=== PATIENT | female | born 1990 | race Caucasian/White ===

== ENCOUNTER → 2021-10-17 09:41 | Outpatient (CLI) | payer OTHER, SELFPAY ==
[2021-10-17 10:53] LABS: Add Manual Diff / Slide Review NO; Basophils Absolute Auto 0 /uL (0-100); Basophils Percent Auto 0.4 % (0-2); Eosinophils Absolute Auto 100 /uL (0-450); Eosinophils Percent Auto 1.6 % (2-4); Hematocrit 40.9 % (36-46); Hemoglobin 13.9 g/dL (12.0-16.0); Lymphocytes Absolute Auto 2000 /uL (1100-4500); Lymphocytes Percent Auto 26.6 % (25-40); Mean Corpuscular HGB Conc 33.9 % (30-36); Mean Corpuscular Volume 85.6 fL (80-100); Monocytes Absolute Auto 500 /uL (0-900); Monocytes Percent Auto 7.1 % (3-14); Neutrophils Absolute Auto 4700 /uL (1500-7000); Neutrophils Percent Auto 64.3 % (50-75); Platelet Count 302 X10^3/uL (150-400); Red Blood Cell Count 4.77 X10^6/uL (4.0-5.2); Red Cell Distribution Width 13.6 % (11.6-14.8); White Blood Cell Count 7.4 X10^3/uL (4.5-11.0)
[2021-10-17 12:00] LABS: HCG Quantitative /Beta subunit 12061 mIU/mL
== END ==
PROVIDERS: PCP Student in an Organized Health Care Education/Training Program; Referring Provider Obstetrics & Gynecology; Visit Provider Obstetrics & Gynecology
DX: O20.0 Threatened abortion (principal)
CPT/HCPCS: 36415; 84702; 85025; 86850; 86900; 86901

== ENCOUNTER → 2021-10-19 08:40 | Outpatient (CLI) | payer OTHER, SELFPAY ==
[2021-10-19 10:47] LABS: HCG Quantitative /Beta subunit 10355 mIU/mL
== END ==
PROVIDERS: PCP Student in an Organized Health Care Education/Training Program; Referring Provider Obstetrics & Gynecology; Visit Provider Obstetrics & Gynecology
DX: O20.0 Threatened abortion (principal)
CPT/HCPCS: 36415; 84702

== ENCOUNTER → 2021-10-23 10:32 | Outpatient (CLI) | payer OTHER, SELFPAY | PROVIDERS: PCP Student in an Organized Health Care Education/Training Program; Referring Provider Obstetrics & Gynecology; Visit Provider Obstetrics & Gynecology | DX: O03.4 Incomplete spontaneous abortion without complication (principal) | CPT/HCPCS: 36415; 84702 ==

== ENCOUNTER → 2022-10-12 11:03 | Outpatient (CLI) | payer OTHER, SELFPAY ==
--- NOTE | 2022-10-12 11:04 | DI.US.S_ITS ---
PROCEDURE: US OB <= 14 WEEKS FETUS INDICATIONS: DATING AND VIABILITY OUTSIDE/PRIOR DATING DATA: Last menstrual period (LMP): 07/27/2022 LMP-based estimated date of delivery (YISSEL): 05/03/2023 First dating scan (date and location): 10/12/2022 Estimated date of delivery (YISSEL) from first dating scan: 05/04/2023 TECHNIQUE: Real-time scanning was performed of the fetus and maternal pelvic organs, with image documentation. COMPARISON: None. 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 Single live intrauterine gestation is seen within the left horn of the bicornuate uterus with fetus and yolk sac seen. Argenta-rump length measures 4.9 cm. Estimated gestational age is 10 weeks, 6 days.. Estimated gestational age based on last menstrual period is 11 weeks 0 day. Heart rate: 160 beats per minute. Cervix is closed, cervical canal measures 3.3 cm in length. Maternal organs: Right ovary is visualized and is within normal limits. Left ovary is not seen. Complex hypoechoic structure is noted within right horn of bicornuate uterus measures 3.9 x 2.1 x 3.8 cm in size and show no internal vascularity. IMPRESSION: 1. Single live intrauterine gestation within left horn of the bicornuate uterus as described above. Estimated gestational age based on current study is 10 weeks, 6 days. heart rate is 160 beats per minute. 2. Nonvascular hypoechoic area within right horn of bicornuate uterus as above and may represent subchorionic hemorrhage. Sonographic follow-up is recommended. Right ovary is visualized and is within normal limits. Left ovary is not well seen. No adnexal mass is noted. We strive to produce accurate, complete, and clear reports of imaging services. To assist us in improving patient care, this report was composed using standard report templates and voice recognition software. Therefore, it may contain abnormal punctuation, insertions and/or omissions. Occasional wrong-word or sound-alike substitutions may occur. Though we review the report and make efforts to correct it, we do recommend that the report be read carefully in proper context to recognize any text inaccuracies. Dictated by: Ezio Guy M.D. on 10/12/2022 at 12:22 Approved by: Ezio Guy M.D. on 10/12/2022 at 12:25
== END ==
PROVIDERS: PCP Student in an Organized Health Care Education/Training Program; Referring Provider Obstetrics & Gynecology; Visit Provider Obstetrics & Gynecology
DX: Z36.87 Encounter for antenatal screening for uncertain dates (principal); O34.01 Maternal care for unspecified congenital malformation of uterus, first trimester; Q51.3 Bicornate uterus; Z3A.10 10 weeks gestation of pregnancy
CPT/HCPCS: 76801; 76817

== ENCOUNTER → 2022-10-22 10:06 | Outpatient (CLI) | payer OTHER, SELFPAY ==
[2022-10-22 22:56] LABS: Urine Chlamydia NOT DETECTED; Urine N gonorrhoeae NOT DETECTED
== END ==
PROVIDERS: PCP Student in an Organized Health Care Education/Training Program; Visit Provider Obstetrics & Gynecology
DX: Z34.81 Encounter for supervision of other normal pregnancy, first trimester (principal); Z3A.12 12 weeks gestation of pregnancy
CPT/HCPCS: 87491; 87591

== ENCOUNTER → 2022-10-22 10:26 | Outpatient (CLI) | payer OTHER, SELFPAY ==
[2022-10-22 11:30] LABS: Specimen Label y
[2022-10-22 12:12] LABS: Add Manual Diff / Slide Review NO; Basophils Absolute Auto 0 /uL (0-100); Basophils Percent Auto 0.3 % (0-2); Eosinophils Absolute Auto 0 /uL (0-450); Eosinophils Percent Auto 0.6 % (2-4); Hematocrit 39.6 % (36-46); Hemoglobin 13.4 g/dL (12.0-16.0); Lymphocytes Absolute Auto 1700 /uL (1100-4500); Lymphocytes Percent Auto 23.1 % (25-40); Mean Corpuscular HGB Conc 33.9 % (30-36); Mean Corpuscular Hemoglobin 29.7 PG (26-34); Mean Corpuscular Volume 87.6 fL (80-100); Monocytes Absolute Auto 400 /uL (0-900); Neutrophils Absolute Auto 5100 /uL (1500-7000); Platelet Count 237 X10^3/uL (150-400); Red Blood Cell Count 4.52 X10^6/uL (4.0-5.2); Red Cell Distribution Width 13.6 % (11.6-14.8); White Blood Cell Count 7.3 X10^3/uL (4.5-11.0)
[2022-10-22 16:29] LABS: Hepatitis B Surface Antigen NEGATIVE s/c (NEGATIVE); Rubella Antibody IgG 8.5 IU/mL (>15)
[2022-10-22 16:45] LABS: HIV 1 & 2 Ab/Ag 4th Gen Combo NEGATIVE (NEGATIVE); Hep C Virus Ab w/Reflex Quant NEGATIVE s/c (NEGATIVE)
[2022-10-23 09:13] LABS: Varicella IgG Antibody 207 index (Immune >165)
[2022-10-24 02:42] LABS: RPR Screen Non Reactive (Non Reactive)
== END ==
PROVIDERS: PCP Student in an Organized Health Care Education/Training Program; Referring Provider Obstetrics & Gynecology; Visit Provider Obstetrics & Gynecology
DX: Z34.81 Encounter for supervision of other normal pregnancy, first trimester (principal); Z3A.12 12 weeks gestation of pregnancy
CPT/HCPCS: 36415; 80055; 86787; 86803; 86850; 86900; 86901; 87086; 87389; 87491; 87591

== ENCOUNTER → 2022-11-22 14:38 | Outpatient (CLI) | payer OTHER, SELFPAY ==
[2022-11-24 21:04] LABS: AFP Value 69.2 ng/mL (.); Gest Age on Col Date 16.9 weeks (.); Insulin Dep Diabetes No (.); OSBR Risk 1IN 1630 (.); Results Report (.); Test Results *Screen Negative* (.)
== END ==
PROVIDERS: PCP Student in an Organized Health Care Education/Training Program; Referring Provider Obstetrics & Gynecology; Visit Provider Obstetrics & Gynecology
DX: Z34.82 Encounter for supervision of other normal pregnancy, second trimester (principal); Z3A.16 16 weeks gestation of pregnancy
CPT/HCPCS: 36415; 82105

== ENCOUNTER → 2022-12-18 10:18 | Outpatient (CLI) | payer OTHER, SELFPAY ==
--- NOTE | 2022-12-18 10:19 | DI.US.S_ITS ---
PROCEDURE: US OB >= 14 WEEKS FETUS INDICATIONS: ANATOMY OUTSIDE/PRIOR DATING DATA: Last menstrual period (LMP): 07/27/2022. LMP-based estimated date of delivery (YISSEL): 05/03/2023. First dating scan (date and location): 09/22/2022. Estimated date of delivery (YISSEL) from first dating scan: 05/04/2023. TECHNIQUE: Real-time scanning was performed of the fetus, with image documentation and biometric measurements. Endovaginal scanning: Not performed COMPARISON: None. FINDINGS: General: A single living intrauterine gestation is present. Presentation: Breech. Placenta: Placental position is posterior , without previa. Amniotic fluid index: 13.2 cm, normal range is 5-24 cm. Single deepest vertical pocket is 4.2 cm. heart rate: 150 beats per minute. Maternal cervical canal: 3.8 cm long. Normal lower limit is 2.5 cm. biometrics: Biparietal diameter: 4.7 cm, 20 weeks 2 days Head circumference: 18.1 cm, 20 weeks 4 days Abdominal circumference: 15.3 cm, 20 weeks 4 days Femur length: 3.4 cm, 20 weeks 5 days Clinically estimated gestational age: 20 weeks 4 days Composite gestational age from present scan: 20 weeks 4 days Estimated weight and percentile: 363 g, 45th percentile Anatomic survey: Neuro: Ventricles are non-dilated at less than 10 mm. Cisterna magna is normal at 3-11 mm. Cerebellum is normal in size and morphology. Nuchal skin fold: Normal at less than 6 mm between 14-21 weeks gestational age. Face: Nose and lips, facial profile are normal. Spine: No evidence for spina bifida. Heart: 4-chambered heart is present, with normal ventricular outflow tracts. Diaphragm: Diaphragm is intact. Stomach: Left-sided stomach is present. Kidneys: No hydronephrosis. Normal is less than 5 mm in 2nd trimester, less than 7 mm in 3rd trimester. Cord: 3-vessel cord has orthotopic insertion. Bladder: Normal in size. Extremities: All 4 extremities identified. IMPRESSION: Single living intrauterine at 20 weeks 4 days, YISSEL of 05/03/2023. Normal anatomy survey. Forty-fifth percentile estimated weight percentage. We strive to produce accurate, complete, and clear reports of imaging services. To assist us in improving patient care, this report was composed using standard report templates and voice recognition software. Therefore, it may contain abnormal punctuation, insertions and/or omissions. Occasional wrong-word or sound-alike substitutions may occur. Though we review the report and make efforts to correct it, we do recommend that the report be read carefully in proper context to recognize any text inaccuracies. Dictated by: Tera Espino M.D. on 12/18/2022 at 14:26 Approved by: Tera Espino M.D. on 12/18/2022 at 14:29
== END ==
PROVIDERS: PCP Student in an Organized Health Care Education/Training Program; Referring Provider Obstetrics & Gynecology; Visit Provider Obstetrics & Gynecology
DX: Z34.82 Encounter for supervision of other normal pregnancy, second trimester (principal); Z3A.20 20 weeks gestation of pregnancy
CPT/HCPCS: 76811

== ENCOUNTER → 2023-01-23 13:15 | Outpatient (CLI) | payer OTHER, SELFPAY ==
[2023-01-24 12:14] LABS: Candida species Positive (Negative); Gardnerella vaginalis Negative (Negative); Trichomoas vaginalis Negative (Negative)
== END ==
PROVIDERS: PCP Student in an Organized Health Care Education/Training Program; Visit Provider Obstetrics & Gynecology
DX: N89.8 Other specified noninflammatory disorders of vagina (principal)
CPT/HCPCS: 87480; 87510; 87660

== ENCOUNTER → 2023-01-29 09:20 | Outpatient (CLI) | payer OTHER, SELFPAY ==
[2023-01-29 11:08] LABS: Hematocrit 35.3 % (36-46); Hemoglobin 11.9 g/dL (12.0-16.0)
[2023-01-29 11:26] LABS: GTT (PREG) 1 Hour PP 50gm Dose 88 mg/dL (76-139)
== END ==
PROVIDERS: PCP Student in an Organized Health Care Education/Training Program; Referring Provider Obstetrics & Gynecology; Visit Provider Obstetrics & Gynecology
DX: Z34.82 Encounter for supervision of other normal pregnancy, second trimester (principal); Z3A.26 26 weeks gestation of pregnancy
CPT/HCPCS: 36415; 82950; 85014; 85018

== ENCOUNTER 2023-02-25 13:35 | Outpatient (CLI) | payer OTHER, SELFPAY ==
[2023-02-25 14:23] LABS: Appearance Urine UA CLEAR; Bilirubin Urine UA NEGATIVE (NEGATIVE); Color Urine UA YELLOW; Glucose Urine UA NEGATIVE (Negative); Ketones Urine UA NEGATIVE (NEGATIVE); Leukocyte Esterase Urine UA 1+ (NEGATIVE); Nitrite Urine UA NEGATIVE (Negative); Occult Blood Urine UA TRACE-LYSED (Negative); Protein Urine UA NEGATIVE (Negative); Specific Gravity Urine UA <=1.005 (1.000-1.035); Urobilinogen Urine UA 0.2 E.U./dL (0.2)
[2023-02-25 15:06] LABS: Bacteria Urine Many (>30); Culture Indicated Urine Specimen Cultured; RBC Urine None Seen (0-5/HPF); Squamous Epithelial Cell Urine 10-30 /HPF (0-5/HPF); WBC Urine 5-10/HPF (0-5/HPF)
--- NOTE | 2023-02-25 18:00 | P.TNLD_ITS ---
Visit Information Visit Information Date of evaluation: 02/25/23 Primary OB Provider: Herminio Mayberry On-call OB Provider: Amara Tomlin Reason for Evaluation: Yes pre-term labor Comments/Additional reasons for admission: Patient is a 32-year-old at 30-,3/7 weeks gestation who presented with cramping. She had intercourse 48 hours ago. No vaginal bleeding. No leakage of fluid. [facility] Medical History (Updated 02/15/23 @ 13:54 by Herminio Mayberry MD) First trimester bleeding anxiety depression Surgical History (Updated 11/21/22 @ 16:53 by Herminio Mayberry MD) Previous section [place] teeth extracted Family History (Updated 09/17/22 @ 10:07 by Dionna Bean RN) Father Hypertension Hyperlipidemia Heart valve replaced CVA (cerebral vascular accident) Mother Diabetes mellitus Grandmother Heart disease Grandfather Heart disease Heart attack Grandmother Ovarian cancer Social History marital status: number of children: 1 household members: spouse and children lives independently: Yes caregiver/support person: Yes [facility] pets and animals: No education level: college (Associate's degree) occupational status: unemployed current occupational exposures/hazards: No special jr needs: No travel history: recent (domestic only) seatbelt use: always water heater temp set < 120 deg: No working smoke detector in home: Yes fire extinguisher in home: Yes carbon monox detector in home: Yes firearms in home: No do you feel safe at home: Yes Smoking Status: Never smoker second hand exposure: No alcohol intake: former (rarely when not ) substance use type: does not use during the past year weight has: decreased > 10 lbs (significant weight loss back to normal since stopping OCP and SSRI ~1 yr ago) well-balanced diet: daily or most days daily servings fruits/ve-4 caffeine: Yes (occasional black tea or soft drink, minimal.) Type(s) of exercise: walking frequency: 3-4 times per week Exam Narrative Exam Narrative: Generally: No acute distress Objective Labs Labs: Laboratory Results - last 24 hr 02/25/23 14:10 Urine Color Yellow Urine Appearance Clear Urine pH 7.0 Ur Specific [place] <=1.005 Urine Protein Negative Urine Glucose (UA) Negative Urine Ketones Negative Urine Occult Blood Trace-lysed Urine Nitrate Negative Urine Bilirubin Negative Urine Urobilinogen 0.2 Ur Leukocyte Esterase 1+ H Urine RBC None seen Urine WBC 5-10/hpf H Ur Squamous Epith Cells 10-30 /hpf H Urine Bacteria Many (>30) H Ur Culture Indicated? Specimen cultured Evaluation Evaluation Baseline heart rate: 135 Variability: Moderate (11-25) monitor accelerations: Present Monitor Decelerations: Absent Uterine Contraction Intensity: Mild (Uterine irritability) Diagnosis, Plan/Disposition Plan/Disposition Plan: Assessment: 32-year-old at 30-,3/7 weeks gestation with cramping, uterine irritability, UA with appearance of UTI Plan: Urine sent for C&S Cephalexin 750 mg b.i.d. for 7 days Warning signs for labor reviewed Follow-up with Dr. Mayberry as scheduled OB Disposition: home
== END 2023-02-25 15:25 | disposition home or self-care (01) ==
LOC: LABOR 15:18 → OB 02-28 14:52
PROVIDERS: Obstetrics & Gynecology; PCP Student in an Organized Health Care Education/Training Program; Referring Provider Obstetrics & Gynecology; Visit Provider Obstetrics & Gynecology
DX: O26.893 Other specified pregnancy related conditions, third trimester (principal); R10.9 Unspecified abdominal pain; Z3A.30 30 weeks gestation of pregnancy
CPT/HCPCS: 59025; 81001; 87077; 87086; 87186; G0378; G0379

== ENCOUNTER 2023-03-06 07:09 | Outpatient (CLI) | payer OTHER, SELFPAY ==
--- NOTE | 2023-03-06 07:18 | P.TNLD_ITS ---
Visit Information Visit Information Date of evaluation: 03/06/23 Primary OB Provider: Herminio Mayberry On-call OB Provider: Rebeca Su Comments/Additional reasons for admission: 32yo at 31w5d here due to abdominal pain and vaginal bleeding. Pt reports waking this morning with significant low/mid right-sided back pain. The pain then radiated down to her lower abdomen. The pain is constant. Her notes that she has been doubled over all morning. After urinating prior to presentation, she noted a pink tinge on her toilet paper. She denies any other vaginal bleeding. The pts placenta is posterior position. She does have a hx of early delivery at 35wks via due to abruption. The pt has a known bicornuate uterus. The pt did just finish treatment for a UTI approximately 2 weeks ago. [facility] Medical History (Updated 03/06/23 @ 12:57 by Rebeca Su MD) First trimester bleeding anxiety depression Surgical History (Updated 11/21/22 @ 16:53 by Herminio Mayberry MD) Previous section [place] teeth extracted Family History (Updated 09/17/22 @ 10:07 by Dionna Bean RN) Father Hypertension Hyperlipidemia Heart valve replaced CVA (cerebral vascular accident) Mother Diabetes mellitus Grandmother Heart disease Grandfather Heart disease Heart attack Grandmother Ovarian cancer Social History marital status: number of children: 1 household members: spouse and children lives independently: Yes caregiver/support person: Yes housing: [facility]) pets and animals: No education level: college (Associate's degree) occupational status: unemployed current occupational exposures/hazards: No special jr needs: No travel history: recent (domestic only) seatbelt use: always water heater temp set < 120 deg: No working smoke detector in home: Yes fire extinguisher in home: Yes carbon monox detector in home: Yes firearms in home: No do you feel safe at home: Yes Smoking Status: Never smoker second hand exposure: No alcohol intake: former (rarely when not ) substance use type: does not use during the past year weight has: decreased > 10 lbs (significant weight loss back to normal since stopping OCP and SSRI ~1 yr ago) well-balanced diet: daily or most days daily servings fruits/ve-4 caffeine: Yes (occasional black tea or soft drink, minimal.) Type(s) of exercise: walking frequency: 3-4 times per week Exam Narrative Exam Narrative: Gen: NAD, appears uncomfortable when standing, speaking easily and walking without difficulty CV: RRR, no murmurs Resp: clear to auscultation bilaterally Abd: soft, nontender, nondistended, gravid Back: right sided CVA/flank tenderness Ext: no edema Evaluation Evaluation Baseline heart rate: 135 Variability: Moderate (11-25) monitor accelerations: Present Monitor Decelerations: Absent Category of Tracing: Reactive Diagnosis, Plan/Disposition Final Diagnosis (1) Hematuria: Status: Acute (2) Abdominal pain: Status: Acute Plan/Disposition Plan: 32yo at 31w5d here due to abdominal pain and vaginal bleeding. Does have significant flank pain as well. U/A with 3+ blood. U/S ordered, final report not available yet however certified dialysis technician saw no stone but some right-sided hydronephrosis. Stone could be shadowed out by uterus. No ongoing vaginal bleeding. Placenta normal appearance and posterior, cervix long and closed reportedly. Strong suspicion for kidney stone. Results discussed with patient. Rx for Flomax and Oxycodone provided today. Will contact office if pain worsening, any issues with urination, bleeding persists. Pt safe for d/c home. Update: After discharge, ultrasound reported and shows severe right sided hydronephrosis. Unfortunately full renal exam not completed with ultrasound, as was ordered. BMP also no completed while pt in the hospital to check on kidney function. Discussed with pts primary OB, Dr Mayberry, who will recycling operations manager remainder of care. OB Disposition: home
--- NOTE | 2023-03-06 07:38 | DI.US.S_ITS ---
PROCEDURE: US OB LIMITED INDICATIONS: BLEEDING; EFW, MAGALY, PLACENTA OUTSIDE/PRIOR DATING DATA: Last menstrual period (LMP): 07/27/22. LMP-based estimated date of delivery (YISSEL): 05/03/23. First dating scan (date and location): 10/12/22. Estimated date of delivery (YISSEL) from first dating scan: 05/04/23. The calculations are made using the clinical YISSEL of 05/03/23. TECHNIQUE: Real-time scanning was performed of the fetus, with image documentation. Endovaginal scanning: For improved cervical detail COMPARISON: None. FINDINGS: A single living intrauterine gestation is present. Presentation: Breech. Placenta: Placental position is posterior, without previa. Amniotic fluid index: 12.5 cm, normal range is 5-24 cm. Single deepest vertical pocket is 6.9 cm. heart rate: 141 beats per minute. Maternal cervical canal: Closed and 4.6 cm long. Normal lower limit is 2.5 cm. Biparietal diameter 7.5 cm 30 weeks one day Head circumference 29.0 cm 31 weeks six days Abdominal circumference 28.3 cm, 32 weeks two days Femur length 5.7 cm, 29 weeks six days Clinically estimated gestational age: 31 weeks five days Estimated gestational age from initial scan: 31 weeks 0 days. Estimated weight 1748 g, 27th percentile Incidental note made of severe right maternal hydronephrosis. Normal left maternal kidney. IMPRESSION: 1. Single living intrauterine with appropriate and symmetric growth compared to the clinical dates. 2. Posterior placenta without previa or abruption. 3. Closed cervix and normal amniotic fluid volume. Dictated by: Lisbeth Wells M.D. on 03/06/2023 at 11:43 Approved by: Lisbeth Wells M.D. on 03/06/2023 at 11:47
[2023-03-06 07:46] LABS: Appearance Urine UA Slightly Cloudy; Bilirubin Urine UA NEGATIVE (NEGATIVE); Color Urine UA YELLOW; Glucose Urine UA NEGATIVE (Negative); Ketones Urine UA NEGATIVE (NEGATIVE); Leukocyte Esterase Urine UA NEGATIVE (NEGATIVE); Nitrite Urine UA NEGATIVE (Negative); Occult Blood Urine UA 3+ (Negative); Protein Urine UA 3+ (Negative); Specific Gravity Urine UA 1.025 (1.000-1.035); Urobilinogen Urine UA 0.2 E.U./dL (0.2)
[2023-03-06 07:50] LABS: Bacteria Urine Many (>30); RBC Urine >100/HPF (0-5/HPF); WBC Urine 1-5/HPF (0-5/HPF)
[2023-03-06 07:51] LABS: Squamous Epithelial Cell Urine >30 /HPF (0-5/HPF)
[2023-03-06 07:52] LABS: Culture Indicated Urine Cult Not Indicated
== END 2023-03-06 10:50 | disposition home or self-care (01) ==
LOC: LABOR 10:36 → OB 03-07 07:39
PROVIDERS: PCP Student in an Organized Health Care Education/Training Program; Referring Provider Family Medicine; Visit Provider Family Medicine
DX: O26.893 Other specified pregnancy related conditions, third trimester (principal); R10.9 Unspecified abdominal pain; R31.9 Hematuria, unspecified; Z3A.31 31 weeks gestation of pregnancy; R35.0 Frequency of micturition
CPT/HCPCS: 59025; 59050; 76815; 81001; 87086; G0378; G0379

== ENCOUNTER → 2023-03-06 14:51 | Outpatient (CLI) | payer OTHER, SELFPAY ==
[2023-03-06 16:04] LABS: Appearance Urine UA SL CLOUDY; Bilirubin Urine UA NEGATIVE (NEGATIVE); Color Urine UA YELLOW; Glucose Urine UA NEGATIVE (Negative); Ketones Urine UA NEGATIVE (NEGATIVE); Leukocyte Esterase Urine UA 1+ (NEGATIVE); Nitrite Urine UA NEGATIVE (Negative); Occult Blood Urine UA 3+ (Negative); Protein Urine UA 3+ (Negative); Specific Gravity Urine UA 1.015 (1.000-1.035); Urobilinogen Urine UA 0.2 E.U./dL (0.2)
[2023-03-06 16:05] LABS: Bacteria Urine Few (2-10); Culture Indicated Urine Cult Not Indicated; RBC Urine 1-5/HPF (0-5/HPF); Squamous Epithelial Cell Urine 1-5 /HPF (0-5/HPF); WBC Urine 1-5/HPF (0-5/HPF)
== END ==
PROVIDERS: PCP Student in an Organized Health Care Education/Training Program; Visit Provider Obstetrics & Gynecology
DX: R35.0 Frequency of micturition (principal)
CPT/HCPCS: 81001; 87086

== ENCOUNTER 2023-03-06 17:32 | Observation (INO) | payer OTHER, SELFPAY ==
[2023-03-06 18:16] LABS: Add Manual Diff / Slide Review NO; Basophils Absolute Auto 0 /uL (0-100); Basophils Percent Auto 0.2 % (0-2); Eosinophils Absolute Auto 0 /uL (0-450); Eosinophils Percent Auto 0.3 % (2-4); Hematocrit 35.3 % (36-46); Hemoglobin 11.9 g/dL (12.0-16.0); Lymphocytes Absolute Auto 1800 /uL (1100-4500); Lymphocytes Percent Auto 14.5 % (25-40); Mean Corpuscular HGB Conc 33.7 % (30-36); Mean Corpuscular Hemoglobin 29.4 PG (26-34); Mean Corpuscular Volume 87.3 fL (80-100); Monocytes Absolute Auto 900 /uL (0-900); Monocytes Percent Auto 7.6 % (3-14); Neutrophils Absolute Auto 9400 /uL (1500-7000); Neutrophils Percent Auto 77.4 % (50-75); Platelet Count 268 X10^3/uL (150-400); Red Blood Cell Count 4.04 X10^6/uL (4.0-5.2); Red Cell Distribution Width 13.6 % (11.6-14.8); White Blood Cell Count 12.1 X10^3/uL (4.5-11.0)
[2023-03-06] MEDS: LACTATED RINGERS 1,000 ML 100 ML IV (18:25)
[2023-03-06] MEDS: PIPERACILLIN/TAZO 3.375 GM in SODIUM CHLORIDE 0.9% 100 ML IV (18:25)
[2023-03-06 18:43] LABS: Alanine Aminotransferase 21 IU/L (<35); Albumin 3.7 g/dL (3.5-5.0); Albumin Globulin Ratio 1.1 (1.0-2.8); Alkaline Phosphatase 123 U/L (38-126); Aspartate Aminotransferase 25 IU/L (14-36); BUN Creatinine Ratio 14.6 (6-22); Bilirubin Total 0.5 mg/dL (0.2-1.3); Blood Urea Nitrogen 6 mg/dL (7-17); Calcium 8.7 mg/dL (8.4-10.2); Carbon Dioxide 20 mmol/L (22-32); Chloride 104 mmol/L (98-107); Estimated Glomerular Filt Rate > 60 mL/min (>60); Globulin 3.5 g/dL (1.7-4.1); Glucose 133 mg/dL (70-100); HEMOLYSIS < 15 (0-50); Potassium 3.5 mmol/L (3.4-5.1); Sodium 136 mmol/L (137-145); Total Protein 7.2 g/dL (6.3-8.2)
--- NOTE | 2023-03-06 19:16 | P.HPOB_ITS ---
OB HPI Date/Time Date of admission: 03/06/23 Date Patient Seen: 03/06/23 Time Patient Seen: 19:16 History of Present Condition Chief complaint: IUP, 31+5 wks EGA, R pyelo, R hydronephrosis : 3 Para: 1 Narrative: Kathleen Paris is a 32 year old w/ a 2 day history of increasing R flank pain, both colicky and constant, gross and microscopic hematuria, CVAT, and US showing significant hydronephrosis. Cath UA shows 2+ WBC, 3+ Proteinuria, and 2+ hematuria. C&S is pending but patient treated with full course of cephalexin for sensitive Klebsiella earlier this month. has been unremarkable otherwise with solid dating and appropriate milestones thus far. History of Present care: good care Dating criteria: LMP confirmed by 1st trimester US Ultrasounds: normal 1st trimester US and normal mid trimester US Medical complications: genitourinary (UTI, pyelo) Preadmission Labs Blood type: O (+) positive -: Antibody screen: negative, GBS status: unknown, HBsAG: negative, HIV: negative and RPR/VDLR: negative -: Chlamydia screen: not detected and Gonorrhea screen: not detected -: Rubella: not immune and Varicella: immune HCT: 35.3 HCAB: negative PAP: Normal Quad screen: Normal (NL AFP) Cell-free DNA: Low risk female infant 1 hr GTT: 88 Prior (ies) History: x 1, male, currently 3 yo Evaluation Evaluation Baseline heart rate: 145 Variability: Average (6-10) monitor accelerations: Present Monitor Decelerations: Absent Category of Tracing: Reactive PFSH Medical History (Updated 03/06/23 @ 16:26 by Herminio Mayberry MD) First trimester bleeding anxiety depression Surgical History (Updated 11/21/22 @ 16:53 by Herminio Mayberry MD) Previous section [place] teeth extracted Family History (Updated 09/17/22 @ 10:07 by Dionna Bean RN) Father Hypertension Hyperlipidemia Heart valve replaced CVA (cerebral vascular accident) Mother Diabetes mellitus Grandmother Heart disease Grandfather Heart disease Heart attack Grandmother Ovarian cancer Social History marital status: number of children: 1 household members: spouse and children lives independently: Yes caregiver/support person: Yes housing: condominium ([place] [employer]) pets and animals: No education level: college (Associate's degree) occupational status: unemployed current occupational exposures/hazards: No special jr needs: No travel history: recent (domestic only) seatbelt use: always water heater temp set < 120 deg: No working smoke detector in home: Yes fire extinguisher in home: Yes carbon monox detector in home: Yes firearms in home: No do you feel safe at home: Yes Smoking Status: Never smoker second hand exposure: No alcohol intake: former (rarely when not ) substance use type: does not use during the past year weight has: decreased > 10 lbs (significant weight loss back to normal since stopping OCP and SSRI ~1 yr ago) well-balanced diet: daily or most days daily servings fruits/ve-4 caffeine: Yes (occasional black tea or soft drink, minimal.) Type(s) of exercise: walking frequency: 3-4 times per week Meds Home Medications and Allergies Home Medications Medication Instructions Recorded Confirmed Type comb no.42-folic acid PO 10/16/21 03/06/23 History omeprazole 40 mg capsule,delayed 40 mg PO DAILY #30 caps 01/16/23 03/06/23 Rx release oxycodone 5 mg capsule 5 mg PO TID PRN pain #10 caps 03/06/23 03/06/23 Rx tamsulosin 0.4 mg capsule 0.4 mg PO DAILY #30 caps 03/06/23 03/06/23 Rx Allergies Allergy/AdvReac Type Severity Reaction Status Date / Time No Known Drug Allergies Allergy Unverified 03/06/23 14:06 Review of Systems Review of Systems Narrative: Problem-specific ROS positives included in HPI OB Exam Vital signs Blood Pressure: 104/63 Pulse Rate: 87 Temperature: 97.5 F HENMT Head: normal to inspection, normocephalic and atraumatic Eyes General: appearance normal, both eyes and all related structures Resp Effort & Inspection: normal respiratory effort and able to speak in complete sentences Auscultation: clear to auscultation bilaterally Cardio Rate: regular rate Rhythm: regular rhythm Heart Sounds: S1 normal, S2 normal and no murmurs Extremities Lower extremity: Yes normal to inspection GI Inspection: normal to inspection Palpation: Yes soft, Yes no hepatosplenomegaly and Yes tender (R CVAT) External Female Exam: Yes other (Deferred) Uterus Location (Fundal Height): 32 Estimated Weight (lbs): 4 Objective Labs 03/06/23 17:50 03/06/23 17:50 Labs: Laboratory Results - last 24 hr 03/06/23 03/06/23 17:50 17:50 WBC 12.1 H RBC 4.04 Hgb 11.9 L Hct 35.3 L MCV 87.3 MCH 29.4 MCHC 33.7 RDW 13.6 Plt Count 268 Neut % (Auto) 77.4 H Lymph % (Auto) 14.5 L [place] % (Auto) 7.6 Eos % (Auto) 0.3 L Baso % (Auto) 0.2 Neut # (Auto) 9400 H Lymph # (Auto) 1800 [place] # (Auto) 900 Eos # (Auto) 0 Baso # (Auto) 0 Sodium 136 L Potassium 3.5 Chloride 104 Carbon Dioxide 20 L BUN 6 L Creatinine 0.41 L Estimated GFR > 60 BUN/Creatinine Ratio 14.6 Glucose 133 H Calcium 8.7 Total Bilirubin 0.5 AST 25 ALT 21 Alkaline Phosphatase 123 Total Protein 7.2 Albumin 3.7 Globulin 3.5 Albumin/Globulin Ratio 1.1 Assessment and Plan Assessment and Plan Assessment and Plan narrative: ASSESSMENT 1. Intrauterine , 31+5 wks EGA 2. Acute pyelonephritis, R 3. Hydronephrosis, right kidney PLAN 1. Admit for IV AB therapy 2. BR w/ LLD positioning and hydration 3. See admission orders
[2023-03-07] MEDS: PIPERACILLIN/TAZO 3.375 GM in SODIUM CHLORIDE 0.9% 100 ML IV ×3 (02:25→18:58)
[2023-03-07] MEDS: LACTATED RINGERS 1,000 ML 100 ML IV (03:50)
[2023-03-07 12:13] VITALS: BP 104/63; PULSE 87; TEMP 36.4
--- NOTE | 2023-03-07 12:14 | PM.PN.1 ---
Subjective Subjective Date Patient Seen: 03/07/23 Time Patient Seen: 07:45 Interval history: Patient has done well overnight and is having less right flank pain. She is not had any fevers and denies chills, significant nausea, or vomiting. Initial urine culture shows Gram-negative bacilli. Organism ID and AB sensitivities pending. Exam Vital Signs (past 8 hours): - 03/07/23 12:13 Temperature 97.5 F L Pulse Rate 87 Blood Pressure 104/63 Const General: cooperative and comfortable Nutritional Appearance: average body habitus Orientation: alert and oriented x3 HENMT Head: normal to inspection, atraumatic and abrasion Ears: hearing grossly normal bilaterally Face and sinus: face symmetric Eyes General: appearance normal, both eyes and all related structures Conjunctivae: conjunctivae normal Sclera: sclerae normal EOM: EOM intact bilaterally Neck Neck: normal visual inspection Resp Effort & Inspection: normal respiratory effort and able to speak in complete sentences GI Inspection: normal to inspection Palpation: soft, no hepatosplenomegaly and tender (Minimal right-sided CVAT) External Female Exam: other (No significant bleeding noted) Uterus Location (Fundal Height): 32 Estimated Weight (lbs): 4 Extrem General: no calf tenderness Psych Appearance: grossly normal Mental Status: mental status grossly normal Speech and Movement: speech and movement normal Mood: congruent mood Affect: normal affect Attitude: cooperative Thought Process: normal Thought Content: normal Judgment: judgment good Objective Labs 03/06/23 17:50 03/06/23 17:50 Labs: Laboratory Results - last 24 hr 03/06/23 03/06/23 17:50 17:50 WBC 12.1 H RBC 4.04 Hgb 11.9 L Hct 35.3 L MCV 87.3 MCH 29.4 MCHC 33.7 RDW 13.6 Plt Count 268 Neut % (Auto) 77.4 H Lymph % (Auto) 14.5 L [place] % (Auto) 7.6 Eos % (Auto) 0.3 L Baso % (Auto) 0.2 Neut # (Auto) 9400 H Lymph # (Auto) 1800 [place] # (Auto) 900 Eos # (Auto) 0 Baso # (Auto) 0 Sodium 136 L Potassium 3.5 Chloride 104 Carbon Dioxide 20 L BUN 6 L Creatinine 0.41 L Estimated GFR > 60 BUN/Creatinine Ratio 14.6 Glucose 133 H Calcium 8.7 Total Bilirubin 0.5 AST 25 ALT 21 Alkaline Phosphatase 123 Total Protein 7.2 Albumin 3.7 Globulin 3.5 Albumin/Globulin Ratio 1.1 [facility] Medical History (Updated 03/06/23 @ 16:26 by Herminio Mayberry MD) First trimester bleeding anxiety depression Surgical History (Updated 11/21/22 @ 16:53 by Herminio Mayberry MD) Previous section [place] teeth extracted Family History (Updated 09/17/22 @ 10:07 by Dionna Bean RN) Father Hypertension Hyperlipidemia Heart valve replaced CVA (cerebral vascular accident) Mother Diabetes mellitus Grandmother Heart disease Grandfather Heart disease Heart attack Grandmother Ovarian cancer Social History marital status: number of children: 1 household members: spouse and children lives independently: Yes caregiver/support person: Yes housing: [facility] pets and animals: No education level: college (Associate's degree) occupational status: unemployed current occupational exposures/hazards: No special jr needs: No travel history: recent (domestic only) seatbelt use: always water heater temp set < 120 deg: No working smoke detector in home: Yes fire extinguisher in home: Yes carbon monox detector in home: Yes firearms in home: No do you feel safe at home: Yes Smoking Status: Never smoker second hand exposure: No alcohol intake: former (rarely when not ) substance use type: does not use during the past year weight has: decreased > 10 lbs (significant weight loss back to normal since stopping OCP and SSRI ~1 yr ago) well-balanced diet: daily or most days daily servings fruits/ve-4 caffeine: Yes (occasional black tea or soft drink, minimal.) Type(s) of exercise: walking frequency: 3-4 times per week Assessment & Plan Assessment and plan (1) Hydronephrosis, right: Status: Acute (2) Pyelonephritis of right kidney: Status: Acute (3) Hematuria: Qualifiers: Hematuria type: other microscopic Qualified Code(s): R31.29 - Other microscopic hematuria Status: Acute Assessment & Plan narrative: Continue IV antibiotics as previously ordered until organism identified and sensitivities known at which point will plan to transition to oral antibiotic therapy presuming continued improvement. Repeat renal ultrasound in a.m. to reassess hydronephrosis. Patient is at bedrest in primarily left lateral decubitus position and hopefully with time and positioning the hydronephrosis will have improved significantly. Anticipate possible discharge tomorrow afternoon. Time Spent With Patient Time with patient: less than 30 minutes
[2023-03-07] MEDS: ACETAMINOPHEN 325 MG TABLET 975 MG PO (18:53)
[2023-03-08] MEDS: PIPERACILLIN/TAZO 3.375 GM in SODIUM CHLORIDE 0.9% 100 ML IV ×2 (03:12→11:44)
--- NOTE | 2023-03-08 06:00 | DI.US.S_ITS ---
PROCEDURE: US RENAL COMPLETE INDICATIONS: W/ R PYELO, RIGHT HYDRONEPHROSIS FOLLOW UP TECHNIQUE: Real-time scanning was performed of the kidneys and bladder, with image documentation. COMPARISON: None. FINDINGS: Kidneys: Kidneys are normal in size. Right kidney measures 12.5 cm long; left kidney measures 10.8 cm long. Right renal cortical thickness is 2.2 cm; left renal cortical thickness is 1.8 cm. Renal cortical echotexture is normal. Severe right-sided hydronephrosis and [id number] left-sided hydronephrosis is seen. No obstructing stones are noted. Bladder: Pre-void bladder volume is 37.3 mL.. Pre-void images demonstrate no intraluminal masses or stones. On pre-void images, no ureteral jets are noted with color Doppler interrogation. (Of note, ureteral jets may not be detectable in up to 25% of cases due to insufficient differences in specific gravity between ureteral and bladder urine). Miscellaneous: No free pelvic fluid. IMPRESSION: 1. Severe right-sided hydronephrosis and mild to moderate left-sided hydronephrosis. No obstructing stone is seen. No perinephric fluid or solid appearing renal lesion. 2. No gross abnormality is seen in partially distended urinary bladder. Dictated by: Ezio Guy M.D. on 03/08/2023 at 8:51 Approved by: Ezio Guy M.D. on 03/08/2023 at 9:13
--- NOTE | 2023-03-08 13:44 | P.DS_ITS ---
Discharge Providers Provider Date of admission: 03/06/23 17:32 Discharge Date: 03/08/23 Primary care physician: Dalila Brothers MD Discharge provider: Herminio Mayberry MD Summary Hospital Course Date Patient Seen: 03/08/23 Time Patient Seen: 13:44 Diagnoses: Intrauterine gestation, Nye, 32+ 0 weeks gestational age Acute pyelonephritis, right Bilateral hydronephrosis, right greater than left Hospital Course: Kathleen was admitted on 03/06/2023 due to hematuria and findings of recurrent UTI associated with significant right flank pain. Ultrasound showed severe hydronephrosis on the right side but no evidence of a stone or obstruction at the ureterovesical junction. She was initiated on piperacillin/tazobactam and her right-sided flank pain promptly defervesced. Urine culture showed Klebsiella sensitive to all antibiotics tested with the exception of Macrodantin which showed only intermediate sensitivity. This is exactly the same organism which she had as a bladder infection earlier in February 2023. In formal urology consult yielded no recommendation for stent placement at this time given her imp rovement with antibiotic therapy but she will need to be maintained on suppressive antibiotic therapy for the duration of her . She will be discharged at this time on Augmentin every 8 hours for 10 days followed by Keflex 250 mg p.o. b.i.d. for the duration of her . Discharge ins tructions, limitations of activity, and precautionary symptoms reviewed prior to discharge. Discharge Diagnosis (1) Hydronephrosis, right: Status: Acute (2) Pyelonephritis of right kidney: Status: Acute (3) Hematuria: Status: Acute Status at Discharge Cognitive/behavioral status at discharge: oriented Functional status at discharge: independent ambulation Overall status at discharge: patient is back to baseline Time Spent with Patient Time attestation: Total time spent providing and/or coordinating discharge services: Time spent: Less than 30 minutes Objective Labs 03/06/23 17:50 03/06/23 17:50 Exam Const General: cooperative and comfortable Nutritional Appearance: average body habitus Orientation: alert and oriented x3 HENMT Head: normal to inspection, atraumatic and abrasion Ears: hearing grossly normal bilaterally Face and sinus: face symmetric Eyes General: appearance normal, both eyes and all related structures Conjunctivae: conjunctivae normal Sclera: sclerae normal EOM: EOM intact bilaterally Neck Neck: normal visual inspection Resp Effort & Inspection: normal respiratory effort and able to speak in complete sentences Auscultation: clear to auscultation bilaterally Cardio Rate: regular rate Rhythm: regular rhythm Heart Sounds: S1 normal, S2 normal and no murmurs GI Inspection: normal to inspection and other (Right-sided CVA tenderness is resolved) Palpation: soft and no hepatosplenomegaly External Female Exam: other (No significant bleeding noted) Uterus Location (Fundal Height): 32 Estimated Weight (lbs): 4 Extrem General: no calf tenderness Psych Appearance: grossly normal Mental Status: mental status grossly normal Speech and Movement: speech and movement normal Mood: congruent mood Affect: normal affect Attitude: cooperative Thought Process: normal Thought Content: normal Judgment: judgment good Discharge Plan Discharge Plan Patient Disposition: Home Discharge orders & Medications Prescriptions: New amoxicillin-pot clavulanate [Augmentin] 500-125 mg tablet 1 tab PO Q8H 10 Days Qty: 30 0RF cephalexin 250 mg capsule 250 mg PO Q12H Qty: 60 3RF Rx Instructions: Start medication after completing 10 days of amoxicillin/clavulanic acid. Continued comb no.42-folic acid PO omeprazole 40 mg capsule,delayed release(DR/EC) 40 mg PO DAILY Qty: 30 12RF oxycodone 5 mg capsule 5 mg PO TID PRN (Reason: pain) Qty: 10 0RF Discontinued tamsulosin 0.4 mg capsule 0.4 mg PO DAILY Qty: 30 0RF Follow up/Referrals: Dalila Brothers MD [Primary Care Provider] - Discharge Health Status Multidrug resistant organism: No MDRO Diet/Activity/Treatments Diet: Diet as Tolerated Activity: As tolerated Skin/Wound/Dressing Care Report to your healthcare provider any signs of infection, such as:: chills, fever and increased pain Dressing: N/A Visit Report/Discharge Packet Instructions: DI for Kidney Infection, DI for Prescription Opioid Use Discharge Data Primary Care Provider: Dalila Brothers Attending Provider: Herminio Mayberry Admit Date/Time: 03/06/23 17:32 Discharges patient from system. Discharge Date/Time: 03/08/23 16:00
== END 2023-03-08 16:00 | disposition home or self-care (01) ==
PROVIDERS: Admitting Provider Obstetrics & Gynecology; PCP Student in an Organized Health Care Education/Training Program; Referring Provider Obstetrics & Gynecology; Visit Provider Obstetrics & Gynecology
DX: O23.03 Infections of kidney in pregnancy, third trimester (principal); N13.6 Pyonephrosis; Z3A.31 31 weeks gestation of pregnancy; R35.0 Frequency of micturition; O26.893 Other specified pregnancy related conditions, third trimester; R10.9 Unspecified abdominal pain; R31.9 Hematuria, unspecified
CPT/HCPCS: 59025; 59050; 76770; 76815; 80053; 81001; 85025; 87077; 87086; 87186; 96360; G0378; G0379; J2543

== ENCOUNTER → 2023-04-04 11:05 | Outpatient (CLI) | payer OTHER, SELFPAY ==
[2023-04-06 11:00] LABS: Strep Grp B PCR NEG for Grp B Strep
== END ==
PROVIDERS: PCP Student in an Organized Health Care Education/Training Program; Visit Provider Obstetrics & Gynecology
DX: Z34.83 Encounter for supervision of other normal pregnancy, third trimester (principal); Z3A.35 35 weeks gestation of pregnancy
CPT/HCPCS: 87653

== ENCOUNTER 2023-04-26 05:32 | Inpatient (IN) | payer OTHER, SELFPAY ==
[2023-04-26 05:40] VITALS: BP 118/69
[2023-04-26 06:50] LABS: Add Manual Diff / Slide Review NO; Basophils Absolute Auto 0 /uL (0-100); Basophils Percent Auto 0.5 % (0-2); Eosinophils Absolute Auto 100 /uL (0-450); Eosinophils Percent Auto 0.8 % (2-4); Hematocrit 36.5 % (36-46); Lymphocytes Absolute Auto 2300 /uL (1100-4500); Mean Corpuscular HGB Conc 32.9 % (30-36); Mean Corpuscular Hemoglobin 29.3 PG (26-34); Monocytes Absolute Auto 700 /uL (0-900); Monocytes Percent Auto 7.9 % (3-14); Neutrophils Absolute Auto 5700 /uL (1500-7000); Neutrophils Percent Auto 64.8 % (50-75); Platelet Count 199 X10^3/uL (150-400); Red Cell Distribution Width 14.2 % (11.6-14.8); White Blood Cell Count 8.8 X10^3/uL (4.5-11.0)
[2023-04-26] MEDS: LACTATED RINGERS 1,000 ML 999 ML IV (07:20)
[2023-04-26] MEDS: LACTATED RINGERS 1,000 ML 42 ML IV ×4 (07:20→20:28)
[2023-04-26] MEDS: CITRIC ACID/SODIUM CITRATE 15 ML SOLUTION 30 ML PO (07:28)
--- NOTE | 2023-04-26 07:33 | PM.PREOP ---
Pre-operative Note COVID-19 Criteria for continued procedure: Expected advancement of disease process Interval Note History & Physical reviewed/Exam performed by Physician: Yes Changes to H&P: No
--- NOTE | 2023-04-26 07:34 | P.HPOB_ITS ---
OB HPI Date/Time Date of admission: 04/26/23 Date Patient Seen: 04/26/23 Time Patient Seen: 07:34 History of Present Condition Chief complaint: Repeat w/ayaan salpingectomy : 3 Para: 1 Estimated Date of Delivery: 05/03/23 Estimated Gestational Age (weeks): 39 Narrative: Kathleen Paris is a 32 year old female admitted for repeat with bilateral salpingectomy History of Present care: good care, initiated at week # (12), number of visits (10) and pounds weight gain (12) Dating criteria: LMP confirmed by 1st trimester US Ultrasounds: normal mid trimester US Obstetrical complications: none Medical complications: none Preadmission Labs Blood type: O (+) positive -: Antibody screen: negative, GBS status: negative, HBsAG: negative, HIV: negat barrera and RPR/VDLR: negative -: Chlamydia screen: not detected and Gonorrhea screen: not detected -: Rubella: not immune and Varicella: immune HCAB: negative Cell-free DNA: Normal female 1 hr GTT: 88 Prior (ies) History: Del. DateGA/WeeksLabor LgthBirth WtSexRouteOutcomeAnesthesiaPlace DelvBreastfeedPreg CompName 04/17/17 35 6 lb 5 oz MaleC-sectionlive - [place] 3 months w/ supplementation placenta previa placental abruption deliveryCole 10/23/21 11? spontaneous Evaluation Evaluation Baseline heart rate: 130 Variability: Moderate (11-25) monitor accelerations: Present Monitor Decelerations: Absent Contraction Frequency (minutes): 0 Category of Tracing: Reactive Status: Category l PFSH Medical History (Updated 04/19/23 @ 10:46 by Alejandra Alvarez MD) First trimester bleeding anxiety depression Surgical History (Updated 11/21/22 @ 16:53 by Herminio Mayberry MD) Previous section [place] teeth extracted Family History (Updated 09/17/22 @ 10:07 by Dionna Bean RN) Father Hypertension Hyperlipidemia Heart valve replaced CVA (cerebral vascular accident) Mother Diabetes mellitus Grandmother Heart disease Grandfather Heart disease Heart attack Grandmother Ovarian cancer Social History marital status: number of children: 1 household members: spouse and children lives independently: Yes caregiver/support person: Yes housing: [facility] ([facility]) pets and animals: No education level: college (Associate's degree) occupational status: unemployed current occupational exposures/hazards: No special jr needs: No travel history: recent (domestic only) seatbelt use: always water heater temp set < 120 deg: No working smoke detector in home: Yes fire extinguisher in home: Yes carbon monox detector in home: Yes firearms in home: No do you feel safe at home: Yes Smoking Status: Never smoker second hand exposure: No alcohol intake: former (rarely when not ) substance use type: does not use during the past year weight has: decreased > 10 lbs (significant weight loss back to normal since stopping OCP and SSRI ~1 yr ago) well-balanced diet: daily or most days daily servings fruits/ve-4 caffeine: Yes (occasional black tea or soft drink, minimal.) Type(s) of exercise: walking frequency: 3-4 times per week Meds Home Medications and Allergies Home Medications Medication Instructions Recorded Confirmed Type comb no.42-folic acid 1 cap PO 1XD 10/16/21 04/26/23 History omeprazole 40 mg capsule,delayed 40 mg PO DAILY #30 caps 01/16/23 04/26/23 Rx release cephalexin 250 mg capsule 250 mg PO Q12H #60 caps 03/08/23 04/26/23 Rx Allergies Allergy/AdvReac Type Severity Reaction Status Date / Time No Known Drug Allergies Allergy Unverified 04/19/23 10:12 Review of Systems Review of Systems Narrative: Patient denies headaches, scotomata, epigastric pain. Good movement. No contractions. No leakage of fluid. No vaginal bleeding. OB Exam Vital signs Blood Pressure: 118/69 Pulse Rate: 80 Temperature: 97.5 F Narrative Exam Narrative: HEENT exam within normal limits. Lungs are clear to auscultation percussion. Heart is regular rate and rhythm no S3-S4 murmurs. No thyromegaly. Abdomen is gravid. Fetus is breech to transverse. Extremities without edema and nontender Objective Labs 04/26/23 06:20 Labs: Laboratory Results - last 24 hr 04/26/23 04/26/23 06:20 06:20 WBC 8.8 RBC 4.10 Hgb 12.0 Hct 36.5 MCV 89.0 MCH 29.3 MCHC 32.9 RDW 14.2 Plt Count 199 Neut % (Auto) 64.8 Lymph % (Auto) 26.0 [place] % (Auto) 7.9 Eos % (Auto) 0.8 L Baso % (Auto) 0.5 Neut # (Auto) 5700 Lymph # (Auto) 2300 [place] # (Auto) 700 Eos # (Auto) 100 Baso # (Auto) 0 Antibody Screen Negative Assessment and Plan Assessment and Plan Assessment and Plan narrative: 39 week gestation with prior section and wish for sterilization for repeat low-transverse section and bilateral salpingectomies Time Spent with Patient Total time spent with greater than 50% in coordination of care (as documented) at patient's floor/unit and/or counseling patient:: less than 15 minutes
[2023-04-26 07:41] VITALS: BP 118/69; PULSE 80; TEMP 36.4
[2023-04-26] MEDS: ACETAMINOPHEN IV 1,000 MG/100 ML VIAL 400 MG IV (08:00)
[2023-04-26] MEDS: CEFAZOLIN 2 GM/100 ML PREMIX 100 ML IV (08:07)
--- NOTE | 2023-04-26 08:36 | SUR.OPER ---
Supine on Padded OR bed, head on pillow, safety belt at thigh, arms secured on padded arm boards at <90 degrees abduction. Bump under right buttock. Legs uncrossed with pillow under knees, gel pad to heels, tape over blanket to lower legs. Gel pad placed between patients urinary catheter and posterior upper leg.
--- NOTE | 2023-04-26 08:50 | SUR.OPER ---
Viable baby girl delivered at 0826. Placenta delivered. Cord blood tubes X2 and placenta given to L&D RN.
[2023-04-26 09:17] VITALS: BP 96/55; PULSE 61; RESP 12; TEMP 36.3; O2SAT 99
--- NOTE | 2023-04-26 09:18 | PM.OBCS.1 ---
Operative Date/Time/Diagnoses Date of procedure: 04/26/23 Time of procedure: 09:18 Pre-op diagnosis: Prior section with breech presentation and desire for sterilization Post-op diagnosis: other (Inability to perform sterilization due to extensive scar tissue of the uterus to the anterior abdominal wall mostly on the right side) Procedure & Clinicians Procedure: Repeat low-transverse section Same procedure as scheduled: No (Unable to perform sterilization due to extensive adhesions of the uterus to) Indications: Previous with breech presentation and undesired fertility Surgeon: Alejandra Alvarez Click Yes if Unassisted: No Plant Science Professor: Rebeca Su Anesthesia Type: Spinal Operative Notes Findings: Normal left tube and ovary, bicornuate uterus, extensive adhesions of the uterus to the anterior abdominal wall midline and to the right. Unable to reach the right fallopian tube and ovary due to the extensive adhesions Closure Type: primary Specimen(s): cord blood Intraoperative meds administered: Acetaminophen, Duramorph and Ketorolac Applied: Catheter (Gramajo) Estimated Blood Loss (mL): 700 Blood products transfused: none Procedure in detail: The patient was brought to the operating room where she underwent a spinal for anesthesia. She was placed in a supine position with a left lateral tilt. A Gramajo catheter was placed. Pulsatile stockings were placed and functional throughout the case. 2 g of Ancef were given IV prior to the incision. Warming was in place. The patient was prepped and draped in usual sterile fashion. A low transverse incision was made with a scalpel through the prior incision and the incision was carried down to the fascial layer which was incised transversely with scissors. The catering administrative assistant did her side of the incision. The midline attachments are superiorly and inferiorly. The rectus muscles were in the midline and the peritoneal incision was made with no damage to internal structures. The peritoneum was incised and superiorly and inferiorly. The incision was stretched with the surgeon and catering administrative assistant placing traction. Bladder blade was placed and a bladder flap was developed and the bladder held away from the lower uterine segment. An incision was made in the uterus with the scalpel and the incision was extended with stretching. The breech was elevated out of the abdomen and a moistened towel placed around the baby. The baby was rotated allowing delivery of each arm and then the head delivered spontaneously. The was bulb suctioned for clear fluid. After 1 minute the cord was clamped and cut and the handed off to the warmer. Cord blood was collected. The placenta delivered spontaneously with traction. The uterus was cleaned with clean laps. The uterine incision was closed in 2 layers of 0 chromic suture the first a running locking layer the second an imbricating layer. The catering administrative assistant was helping to expose the incision. Attention was taken to the extensive adhesion of the uterus to the anterior abdominal wall. The left tube and ovary were found and were normal. However due to the extensive thick adhesion to the anterior abdominal wall the right tube and ovary could not be visualized. It did not appear to be a safe option to dissect the adhesion to get to the fallopian tube and the patient was agreeable not to perform the salpingectomy. There was not a obvious bladder flap layer that could be repaired. Adequate hemostasis was noted. The perineum was closed with 2-0 Vicryl suture. The fascia layer was closed with 0 Vicryl suture with 2 stitches. The catering administrative assistant repairing half the incision with helping to retract and expose the incision for the other half. The incision was irrigated and adequate hemostasis noted. The incision was closed with interrupted 3-0 Vicryl sutures and then a subcuticular stitch of 4-0 Vicryl suture. Steri-Strips were placed. The uterus was massaged to remove any clots. The patient went to recovery room in good condition. Counts of instruments and sponges were correct. Dr. Su was present throughout the case to assist with retraction, fundal pressure to deliver the infant, and suturing half the fascia. Complications: none [place] Baby 1: Gender: Female Presentation: breech Placental Delivery Description: Expressed Cord Vessel Description: 3 Vessels score (1 min): 8 score (5 min): 9 Post-operative Condition: stable Disposition: other ( Center) Aftercare: routine postop
[2023-04-26 09:23] VITALS: BP 106/58; PULSE 66; RESP 13; O2SAT 100
[2023-04-26 09:28] VITALS: BP 110/73; PULSE 55; RESP 15; O2SAT 99
[2023-04-26 09:41] VITALS: BP 113/70; PULSE 56; RESP 14; TEMP 36.3; O2SAT 100
[2023-04-26] MEDS: KETOROLAC 30 MG/ML VIAL IV ×3 (10:43→22:48)
[2023-04-26] MEDS: diphenhydrAMINE 50 MG/ML VIAL 25 MG IV (13:25)
[2023-04-26] MEDS: ACETAMINOPHEN 325 MG TABLET 650 MG PO ×2 (14:35→20:28)
[2023-04-26] MEDS: DOCUSATE 100 MG CAPSULE PO (20:29)
[2023-04-27] MEDS: ACETAMINOPHEN 325 MG TABLET 650 MG PO ×2 (02:26→08:43)
[2023-04-27] MEDS: KETOROLAC 30 MG/ML VIAL IV (05:14)
[2023-04-27] MEDS: OXYCODONE IR 5 MG TABLET PO ×3 (05:14→13:20)
[2023-04-27] MEDS: PANTOPRAZOLE DR 40 MG TABLET PO (05:15)
[2023-04-27 06:09] LABS: Add Manual Diff / Slide Review NO; Basophils Absolute Auto 0 /uL (0-100); Basophils Percent Auto 0.2 % (0-2); Eosinophils Absolute Auto 200 /uL (0-450); Eosinophils Percent Auto 1.1 % (2-4); Hematocrit 28.1 % (36-46); Hemoglobin 9.3 g/dL (12.0-16.0); Lymphocytes Absolute Auto 2400 /uL (1100-4500); Mean Corpuscular HGB Conc 33.1 % (30-36); Mean Corpuscular Hemoglobin 29.5 PG (26-34); Mean Corpuscular Volume 89.2 fL (80-100); Monocytes Absolute Auto 900 /uL (0-900); Monocytes Percent Auto 6.6 % (3-14); Neutrophils Absolute Auto 10100 /uL (1500-7000); Neutrophils Percent Auto 74.1 % (50-75); Platelet Count 178 X10^3/uL (150-400); Red Blood Cell Count 3.15 X10^6/uL (4.0-5.2); Red Cell Distribution Width 14.2 % (11.6-14.8); White Blood Cell Count 13.6 X10^3/uL (4.5-11.0)
--- NOTE | 2023-04-27 08:29 | P.PNOB_ITS ---
Subjective - OB Subjective Patient comments: no complaints, incisional pain, tolerating diet and flatus present baby status: doing well and bottle feeding well feeding status: exclusively bottle feeding Narrative: Postoperative day 1. Repeat low-transverse section Date Patient Seen: 04/27/23 Time Patient Seen: 08:29 Exam Vital Signs (past 8 hours): Blood pressure 103/74, pulse 63, temperature 98.3? Oxygen Delivery Method Room Air Narrative Exam Narrative: Abdomen is soft, nontender. Uterus is firm, U-1, nontender. Dressing is clean, dry, intact. Extremities without edema and nontender. Mild lochia. Objective Labs 04/27/23 05:49 Labs: Laboratory Results - last 24 hr 04/27/23 05:49 WBC 13.6 H D RBC 3.15 L Hgb 9.3 L Hct 28.1 L MCV 89.2 MCH 29.5 MCHC 33.1 RDW 14.2 Plt Count 178 Neut % (Auto) 74.1 Lymph % (Auto) 18.0 L [place] % (Auto) 6.6 Eos % (Auto) 1.1 L Baso % (Auto) 0.2 Neut # (Auto) 95555 H Lymph # (Auto) 2400 [place] # (Auto) 900 Eos # (Auto) 200 Baso # (Auto) 0 Assessment & Plan Assessment and Plan (1) Acute blood loss anemia: Status: Acute (2) Delivery by section for breech presentation: Status: Acute Plan day: 1 plan OB: routine postop care Time Spent With Patient Time: Total time spent is greater than 50% in coordination of care (as documented) at patient's floor/unit and/or counseling patient: Time with patient: less than 15 minutes
[2023-04-27] MEDS: PRENATAL VIT,CALC/IRON/FOLIC 1 TABLET 1 TAB PO (08:45)
[2023-04-27] MEDS: FERROUS SULFATE 325 MG TABLET PO (08:45)
[2023-04-27] MEDS: DOCUSATE 100 MG CAPSULE PO (08:45)
[2023-04-27] MEDS: MEASLES,MUMPS,RUBELLA VACC/PF 0.5 ML VIAL SUBCUT (12:02)
[2023-04-27] MEDS: IBUPROFEN 600 MG TABLET PO (12:04)
--- NOTE | 2023-04-27 12:34 | P.DS_ITS ---
Discharge Providers Provider Date of admission: 04/26/23 05:32 Discharge Date: 04/27/23 Primary care physician: Dalila Brothers MD Discharge provider: Alejandra Alvarez MD Summary Hospital Course Date Patient Seen: 04/27/23 Time Patient Seen: 12:34 Diagnoses: Prior section, breech presentation at 39 weeks status post repeat low-transverse section and acute blood loss anemia Hospital Course: Patient was admitted on 04/25/2023 for repeat section with breech presentation at 39 weeks' gestation. She also was to have a bilateral salpingectomy for sterilization however she had such significant scar tissue of her uterus to her anterior abdominal wall that the right fallopian tube could no t be reached so salpingectomies not performed. Patient was ambulatory, urinating well, passing gas, is bottle feeding her baby and it feels she is ready to be discharged home. Pain is under control. Peripartum Data Infant Delivery Method: Section Procedures: Repeat low-transverse section complications: none [place] 1: Gender: Female Disposition of : home Discharge Diagnosis (1) Acute blood loss anemia: Status: Acute (2) Delivery by section for breech presentation: Status: Acute Status at Discharge Cognitive/behavioral status at discharge: oriented Functional status at discharge: independent ambulation Overall status at discharge: patient is progressing back to baseline Time Spent with Patient Time attestation: Total time spent providing and/or coordinating discharge services: Time spent: Less than 30 minutes Objective Labs 04/27/23 05:49 Labs: Laboratory Results - last 24 hr 04/27/23 05:49 WBC 13.6 H D RBC 3.15 L Hgb 9.3 L Hct 28.1 L MCV 89.2 MCH 29.5 MCHC 33.1 RDW 14.2 Plt Count 178 Neut % (Auto) 74.1 Lymph % (Auto) 18.0 L [place] % (Auto) 6.6 Eos % (Auto) 1.1 L Baso % (Auto) 0.2 Neut # (Auto) 04134 H Lymph # (Auto) 2400 [place] # (Auto) 900 Eos # (Auto) 200 Baso # (Auto) 0 Exam Vital Signs (past 8 hours): Blood pressure 103/74, pulse 63, temperature 98.3? Oxygen Delivery Method Room Air Narrative Exam Narrative: Abdomen is soft, nontender. Uterus is firm, U-1, nontender. Dressing is clean, dry, intact. Mild lochia. Extremities without edema and nontender. Discharge Plan Discharge Plan Patient Disposition: Home Discharge orders & Medications Prescriptions: Continued comb no.42-folic acid 1 cap PO 1XD omeprazole 40 mg capsule,delayed release(DR/EC) 40 mg PO DAILY Qty: 30 12RF Discontinued cephalexin 250 mg capsule 250 mg PO Q12H Qty: 60 3RF Rx Instructions: Start medication after completing 10 days of amoxicillin/clavulanic acid. No Action ibuprofen 600 mg tablet 600 mg PO Q8H PRN (Reason: pain) Qty: 30 0RF ferrous gluconate 324 mg (37.5 mg iron) tablet 324 mg PO DAILY Qty: 30 0RF Rx Instructions: Take it a different time than vitamin oxycodone 5 mg tablet 5 mg PO Q4H PRN (Reason: pain) Qty: 20 0RF Follow up/Referrals: Dalila Brothers MD [Primary Care Provider] - Alejandra Alvarez MD [Physician] - 1 Week Activity Restrictions/Additional Instructions: Do not lift anything heavier than the baby for 6 weeks. Nothing in vagina for 6 weeks. Diet/Activity/Treatments Diet: Diet as Tolerated Activity: Do not lift anything heavier than the baby for 6 weeks Skin/Wound/Dressing Care Report to your healthcare provider any signs of infection, such as:: chills, fever and increased pain Dressing: Leave dressing in place until one-week post op appointment Visit Report/Discharge Packet Stand Alone Forms: Patient Portal/API Discharge Data Primary Care Provider: Dalila Brothers
[2023-04-27 13:33] VITALS: BP 102/76; PULSE 77; RESP 16; TEMP 37
== END 2023-04-27 15:20 | disposition home or self-care (01) | DRG 787 ==
PROVIDERS: Admitting Provider Specialist; PCP Student in an Organized Health Care Education/Training Program; Referring Provider Specialist; Visit Provider Specialist
PROC: 10D00Z1 Extraction of Products of Conception, Low, Open Approach (ICD-10-PCS; CPT 59514; principal; 2023-04-26 07:45)
DX: O34.211 Maternal care for low transverse scar from previous cesarean delivery (principal); D62 Acute posthemorrhagic anemia; O90.81 Anemia of the puerperium; Z37.0 Single live birth; Z3A.39 39 weeks gestation of pregnancy; N73.6 Female pelvic peritoneal adhesions (postinfective); O34.03 Maternal care for unspecified congenital malformation of uterus, third trimester; Q51.3 Bicornate uterus; Z30.2 Encounter for sterilization
CPT/HCPCS: 36415; 59050; 59510; 59514; 85025; 86850; 86900; 86901; J0131; J0690; J1200; J1885; J2274; J2590